=== PATIENT | male | born 1975 | race Caucasian/White ===

== ENCOUNTER 2019-02-25 09:19 | Emergency (ER) | payer OTHER ==
[~2019-02-25] VITALS: Ht 170.2 cm; Wt 102.1 kg
== END 2019-02-25 14:16 | disposition home or self-care (01) ==
LOC: ER 09:19
DX: K52.9 Noninfective gastroenteritis and colitis, unspecified (principal)

== ENCOUNTER → 2025-05-10 | Emergency (ER) | payer OTHER ==
[~2025-05-10] VITALS: Ht 167.6 cm; Wt 97.1 kg
[~2025-05-10] MED LIST: ANTIVERT25 M2 PO; ENALAPRILAT DIHYDRATE 1.25 MG/ML VIAL IV ONE; FLONASE16 GM NASAL; MECLIZINE HCL 25 MG TABLET PO ONE; NORVASC5 MG PO; ZYRTEC10 MG PO
[2025-05-10 16:33] LABS: BASO % 0.6 % (0.1-1.2); EOS # 0.23 (0.04-0.54); EOS % 2.5 % (0.7-7.0); LYMPH # 2.76 (1.18-3.74); LYMPH % 29.4 % (19.3-53.1); MEAN PLATELET VOLUME 8.90 fl (9.4-12.4); MONO # 0.77 (0.24-0.82); MONO % 8.2 % (4.7-12.5); NEUT # 5.54 (1.56-6.13); NEUT % 59.1 % (34.0-71.1); RED CELL DISTRIBUTION WIDTH 13.0 % (11.6-14.4)
[2025-05-10 17:14] LABS: ALT/SGPT 49.0 U/L (12-78); AST/SGOT 18.0 U/L (15-37); BILIRUBIN TOTAL 0.36 mg/dL (0.3-1.2); BUN CREA RATIO 21.0 (7.0-25.0); CREATININE SERUM 0.8 mg/dL (0.70-1.30); GFR 103.18; GLOBULINA 3.7 G/DL (2.4-3.5); GLUCOSE FASTING 103.0 mg/dL (65-100); OSMOLALITY SERUM 285.0 MOSM/KG (275-295)
== END | disposition home or self-care (01) ==
LOC: ER 12:19
PROVIDERS: Student in an Organized Health Care Education/Training Program
DX: R42 Dizziness and giddiness (principal); I10 Essential (primary) hypertension; J32.8 Other chronic sinusitis